=== PATIENT | male | born 1985 | race Caucasian/White ===

== ENCOUNTER → 2018-01-26 | Outpatient (CLI) | payer OTHER | LOC: BMCIMAGING 08:18 | PROVIDERS: ATTEND Physician Assistant | DX: S82.491D Other fracture of shaft of right fibula, subsequent encounter for closed fracture with routine healing (principal); S82.301D Unspecified fracture of lower end of right tibia, subsequent encounter for closed fracture with routine healing ==

== ENCOUNTER 2019-01-26 16:17 | Emergency (ER) | payer OTHER ==
--- NOTE | 2019-01-26 16:48 | EDPHY ---
H & P Stated Complaint: laceration left thumb Time Seen by Provider: 01/26/19 16:36 HPI/ROS: CHIEF COMPLAINT: Left thumb laceration HISTORY OF PRESENT ILLNESS: Patient is a 33-year-old man who comes to the emergency department complaining of a laceration to his left thumb. He was using a razor knife to work on his car when it slipped across the fingernail of his left thumb. He has a laceration involving the distal half of the fingernail. He denies other injuries. Severity: Moderate Modifying factors: None REVIEW OF SYSTEMS: Constitutional: denies: chills, fever, recent illness, recent injury EENTM: denies: blurred vision, double vision, nose congestion Respiratory: denies: cough, shortness of breath Cardiac: denies: chest pain, irregular heart rate, lightheadedness, palpitations Gastrointestinal/Abdominal: denies: abdominal pain, diarrhea, nausea, vomiting, blood streaked stools Genitourinary: denies: dysuria, frequency, hematuria, pain Musculoskeletal: denies: joint pain, muscle pain Skin: See HPI Neurological: denies: headache, numbness, paresthesia, tingling, dizziness, weakness Hematologic/Lymphatic: denies: blood clots, easy bleeding, easy bruising Immunologic/allergic: denies: HIV/AIDS, transplant 10 systems reviewed and negative except as noted EXAM: GENERAL: Well-appearing, well-nourished and in no acute distress. HEAD: Atraumatic, normocephalic. EYES: Pupils equal round and reactive to light, extraocular movements intact, sclera anicteric, conjunctiva are normal. ENT: TMs normal, nares patent, oropharynx clear without exudates. Moist mucous membranes. NECK: Normal range of motion, supple without lymphadenopathy or JVD. LUNGS: Breath sounds clear to auscultation bilaterally and equal. No wheezes rales or rhonchi. HEART: Regular rate and rhythm without murmurs, rubs or gallops. ABDOMEN: Soft, nontender, normoactive bowel sounds. No guarding, no rebound. No masses appreciated. BACK: No CVA tenderness, no spinal tenderness, step-offs or deformities EXTREMITIES: See diagram Normal range of motion, no pitting or edema. Normal sensation No clubbing or cyanosis. NEUROLOGICAL: Cranial nerves II through XII grossly intact. Normal speech, normal gait. 5/5 strength, normal movement in all extremities, normal sensation , normal reflexes PSYCH: Normal mood, normal affect. SKIN: See diagram Source: Patient Exam Limitations: No limitations - Personal History Current Tetanus Diphtheria and Acellular Pertussis (TDAP): Unsure - Medical/Surgical History Hx Asthma: No Hx Chronic Respiratory Disease: No Hx Diabetes: No Hx Cardiac Disease: No Hx Renal Disease: No Hx Cirrhosis: No Hx Alcoholism: No Hx HIV/AIDS: No Hx Splenectomy or Spleen Trauma: No Other PMH: denies - Social History Smoking Status: Current some day smoker Constitutional: Initial Vital Signs Temperature (C) 36.8 C 01/26/19 16:24 Heart Rate 77 01/26/19 16:24 Respiratory Rate 16 01/26/19 16:24 Blood Pressure 120/70 01/26/19 16:24 O2 Sat (%) 95 01/26/19 16:24 O2 Delivery Mode Room Air Allergies/Adverse Reactions: No Known Allergies Allergy (Unverified 04/15/14 19:55) Home Medications: Medication Instructions Recorded NK [No Known Home Meds] 01/26/19 ED Images - Extremities Fingertip Front/Back: 1 - Laceration of left thumb involving the nail and nail bed. Also involving the lateral aspect of the finger. Medical Decision Making Procedures: Procedure: Laceration repair. Verbal consent was obtained from the patient. The 2 cm left thumb fingernail laceration was anesthetized with 0.5% bupivacaine digital block. The wound was irrigated copiously according to protocol, draped and explored to its base. It was approximately 1/2 cm deep. There were no deep structures involved. No tendon, nerve, or vascular injury was identified when explored. No foreign body was identified. The wound was repaired with 5.0 Prolene, 3 sutures, interrupted. The wound repair was simple without wound margin revisement or multiple flap alignment. The procedure was performed by myself. A dressing was then placed with sterile gauze and bacitracin. ED Course/Re-evaluation: The patient does not think that there was any bony injury declines x-rays. 6:00 p.m. Patient refused nail removal. He understands that he may not have a good cosmetic result. The wound was repaired across the finger nail laceration. We discussed suture care and removal. Differential Diagnosis: Partial list of the Differential diagnosis considered include but were not limited to; finger laceration, nail bed injury and although unlikely based on the history and physical exam, I also considered fracture, foreign body, infection. Departure - Departure Disposition: Home, Routine, Self-Care Clinical Impression: Laceration Laceration of left thumb with damage to nail Qualifiers: Encounter type: initial encounter Foreign body presence: without foreign body Qualified Code(s): S61.112A - Laceration without foreign body of left thumb with damage to nail, initial encounter Condition: Fair Instructions: Care For Your Stitches (ED), Laceration (ED) Additional Instructions: Have your stitches removed in 10 days. Referrals: Violeta Williamson MD [Primary Care Provider] - As per Instructions
[2019-01-26 18:28] VITALS: BP 127/85
== END 2019-01-26 18:31 | disposition home or self-care (01) ==
PROC: 0HQGXZZ Repair Left Hand Skin, External Approach (ICD-10-PCS; principal; 2019-01-26)
DX: S61.112A Laceration without foreign body of left thumb with damage to nail, initial encounter (principal); W26.0XXA Contact with knife, initial encounter; Y92.810 Car as the place of occurrence of the external cause